=== PATIENT | male | born 1945 | race Caucasian/White ===

== ENCOUNTER 2021-06-12 11:15 | Emergency (ER) | payer BC ==
[2021-06-12 11:26] VITALS: TEMP 98.2; BMI 29.9
[2021-06-12 12:29] LABS: EOS % 1.4 % (0-4.5); HEMATOCRIT 29.4 % (35.4-49); HEMOGLOBIN 9.1 GM/dl (11.7-16.9); LYMPH % 21.3 % (8-40); MCH 21.1 pg (25.7-33.7); MEAN CELL VOLUME 68.1 fl (80-96); MEAN PLT VOLUME 8.2 fl (7.5-11.1); MONO % 11.7 % (3.8-10.2); NEUT % 64.6 % (42.8-82.8); PLATELET COUNT 284 10^3/uL (134-434); RBC 4.31 M/mm3 (4.00-5.60); RDW 15.1 % (11.9-15.9); WHITE BLOOD COUNT 9.8 K/mm3 (4.0-10.8)
[2021-06-12 12:36] LABS: ADD RBC MORPHOLOGY YES
[2021-06-12 12:37] LABS: ALBUMIN 3.5 g/dl (3.4-5.0); ALK PHOS 50 U/L (45-117); ANION GAP 10 MMOL/L (8-16); BILIRUBIN,TOTAL 0.9 mg/dl (0.2-1); CALCIUM 8.6 mg/dl (8.5-10); CHLORIDE 98 mmol/L (98-107); CO2 26 mmol/L (21-32); CREATININE 1.1 mg/dl (0.55-1.3); GLUCOSE,RANDOM 134 mg/dl (74-106); SGOT/AST 57 U/L (15-37); SGPT/ALT 37 U/L (13-61); SODIUM 134 mmol/L (136-145); TOT PROT 6.9 g/dl (6.4-8.2)
[2021-06-12 14:28] LABS: ANISOCYTOSIS 1+; PLATELET ESTIMATE ADEQUATE
[2021-06-12 14:45] LABS: N-TERMINAL BNP 155.8 pg/ml (5-125)
[2021-06-12 15:22] VITALS: BP 136/84; PULSE 82
== END 2021-06-12 15:23 | disposition home or self-care (01) ==
LOC: FER 11:15
DX: R05 Cough (principal); Z11.52 Encounter for screening for COVID-19
CPT/HCPCS: 36415; 71045-TC-FY; 80053; 83880; 84484; 85025; 93005; 99285-25; C9803; U0003; U0005